=== PATIENT | female | born 1975 | race Caucasian/White ===

== ENCOUNTER 2016-10-18 17:27 | Emergency (ER) | payer MEDICAID ==
[~2016-10-18] VITALS: Ht 167.6 cm; Wt 145.1 kg
[2016-10-18 17:28] VITALS: BP 145/82
== END 2016-10-18 18:21 | disposition home or self-care (01) ==
LOC: ED 18:10
DX: S90.32XA Contusion of left foot, initial encounter (principal); I10 Essential (primary) hypertension; F32.9 Major depressive disorder, single episode, unspecified; W22.8XXA Striking against or struck by other objects, initial encounter; Y93.89 Activity, other specified; Y92.098 Other place in other non-institutional residence as the place of occurrence of the external cause; Y99.8 Other external cause status
CPT/HCPCS: 99284

== ENCOUNTER 2018-02-21 08:41 | Emergency (ER) | payer MEDICAID ==
[~2018-02-21] VITALS: Ht 167.6 cm; Wt 127.7 kg
[2018-02-21] MEDS ORDERED: VENL75CA PO (08:52)
[2018-02-21 09:01] VITALS: BP 138/91
[2018-02-21] MEDS ORDERED: KETOROLAC 30 MG/1 ML ONE (09:21)
[2018-02-21] MEDS ORDERED: KETOROLAC 30 MG/1 ML IM ONE (09:30)
== END 2018-02-21 10:17 | disposition home or self-care (01) ==
LOC: ED 10:13
DX: J02.8 Acute pharyngitis due to other specified organisms (principal); B97.89 Other viral agents as the cause of diseases classified elsewhere; I10 Essential (primary) hypertension
CPT/HCPCS: 71046; 87081; 87880; 96372; 99284; J1885